=== PATIENT | female | born 1950 | race Caucasian/White ===

== ENCOUNTER 2019-01-15 23:43 | Emergency (ER) | payer SELFPAY ==
[~2019-01-15] VITALS: Ht 165.1 cm; Wt 106.0 kg
[2019-01-16] MEDS ORDERED: IBUPROFEN 200 MG TABLET PO ONE (00:30)
--- NOTE | 2019-01-16 00:37 | NUR ---
ER PA WAS IN TO SEE PT. PT STATES SHE AND HER WERE UNABLE TO FIND A HOTEL OR ANYWHERE TO STAY TONIGHT; HE IS A PATIENT IN THE ER CURRENTLY WELL. PT STATES SHE'S UNABLE TO VOID NOW. WATER PROVIDED. POC RV'WD WITH PT.
--- NOTE | 2019-01-16 00:45 | NUR ---
ERP WAS IN TO SEE PT.
--- NOTE | 2019-01-16 01:05 | NUR ---
PT AMBULATED TO BR WITHOUT DIFFICULTY. INSTRUCTED ON CLEAN CATCH URINE SAMPLE.
--- NOTE | 2019-01-16 01:24 | NUR ---
PT WAS UNABLE TO VOID. ERP NOTIFIED.
--- NOTE | 2019-01-16 01:51 | NUR ---
PT UP TO BR AGAIN, INSTRUCTED ON CLEAN CATCH URINE SAMPLE.
--- NOTE | 2019-01-16 02:08 | NUR ---
UA COLLECTED & SENT. REPORTED TO JOSEPH PAULA.
[2019-01-16 02:23] LABS: CULTURE INDICATED? YES; MICROSCOPIC INDICATED
[2019-01-16] MEDS ORDERED: CEFDINIR 300 MG CAPSULE ONE (02:44)
[2019-01-16 02:53] VITALS: BP 144/86
[2019-01-16] MEDS ORDERED: CEFDINIR 300 MG CAPSULE PO ONE (03:00)
== END 2019-01-16 02:57 | disposition home or self-care (01) ==
LOC: ED 01-16 02:45
DX: N39.0 Urinary tract infection, site not specified (principal); R06.02 Shortness of breath
CPT/HCPCS: 71046; 81001; 87077; 87086; 99284